=== PATIENT | female | born 1975 | race Caucasian/White ===

== ENCOUNTER 2023-01-25 00:06 | Emergency (ER) | payer MEDICAID ==
[~2023-01-25] VITALS: Ht 157.5 cm; Wt 87.0 kg
[~2023-01-25 00:06] MED LIST: FERR-43 PO; FOLI-43 PO; PREN-88 PO
[2023-01-25 00:38] VITALS: O2SAT 99
[2023-01-25] MEDS ORDERED: IBUPROFEN 600MG TABLET PO ONE (03:15)
[2023-01-25 03:25] VITALS: BP 153/83
[2023-01-25] MEDS ORDERED: IBUP-2029 MT (04:48)
[2023-01-25 05:05] VITALS: PULSE 72; RESP 15; TEMP 98.2
== END 2023-01-25 05:00 | disposition home or self-care (01) ==
LOC: ER 00:27
DX: S90.32XA Contusion of left foot, initial encounter (principal); X58.XXXA Exposure to other specified factors, initial encounter; Y93.89 Activity, other specified; Y92.89 Other specified places as the place of occurrence of the external cause; Y99.8 Other external cause status
CPT/HCPCS: 73610; 73630; 81025; 99284